=== PATIENT | female | born 1990 | race African-American/Black ===

== ENCOUNTER 2022-12-31 05:42 | Emergency (ER) | payer MEDICAID, OTHER ==
[~2022-12-31] VITALS: Ht 165.1 cm; Wt 79.3 kg
[2022-12-31 06:55] VITALS: BP 134/76
[2022-12-31] MEDS ORDERED: CEPH-510 PO (07:06)
[2022-12-31] MEDS ORDERED: IBUP800T27 PO (07:06)
== END 2022-12-31 07:11 | disposition home or self-care (01) ==
LOC: ER 05:42
DX: T24.211A Burn of second degree of right thigh, initial encounter (principal); T25.321A Burn of third degree of right foot, initial encounter; Z79.1 Long term (current) use of non-steroidal anti-inflammatories (NSAID); Z79.899 Other long term (current) drug therapy; X10.1XXA Contact with hot food, initial encounter; Y93.89 Activity, other specified; Y92.89 Other specified places as the place of occurrence of the external cause; Y99.8 Other external cause status

== ENCOUNTER 2023-04-29 09:31 | Emergency (ER) | payer MEDICAID ==
[~2023-04-29] VITALS: Ht 165.1 cm; Wt 79.4 kg
[~2023-04-29 09:31] MED LIST: CEPH-510 PO; IBUP-1456 PO
[2023-04-29 09:49] VITALS: BP 130/84
[2023-04-29] MEDS ORDERED: ALBUTEROL SULF 2.5 MG/0.5ML(0.5%) NEB SOLN NEB ONE (10:00)
[2023-04-29] MEDS ORDERED: IPRATROPIUM BROM 0.5 MG/2.5ML INH SOL NEB ONE (10:00)
[2023-04-29] MEDS ORDERED: ALBU108A5 IN (11:13)
[2023-04-29] MEDS ORDERED: IBUP-1456 PO (11:13)
[2023-04-29] MEDS ORDERED: PRED20TA2 PO (11:13)
== END 2023-04-29 11:22 | disposition home or self-care (01) ==
LOC: ER 09:31
DX: S93.601A Unspecified sprain of right foot, initial encounter (principal); J45.901 Unspecified asthma with (acute) exacerbation; W22.8XXA Striking against or struck by other objects, initial encounter; Y93.02 Activity, running; Y92.89 Other specified places as the place of occurrence of the external cause; Y99.8 Other external cause status
CPT/HCPCS: 94640; 99283; J7644

== ENCOUNTER 2025-02-25 05:25 | Emergency (ER) | payer MEDICAID ==
[~2025-02-25 05:25] MED LIST changes: +ALBU108A5 IN; +PRED20TA2 PO
[2025-02-25 05:30] VITALS: BP 123/82; PULSE 74; TEMP 97.7
--- NOTE | 2025-02-25 05:41 | ED.PDOC ---
History of Present Illness HPI Comments 35 y/o obese F, with a Hx of asthma, presents with c/o shortness of breath, today. Patient endorses on sudden and unprovoked onset of symptoms, this morning. She reports on running out of her asthma inhaler, lately. She further comments on said inhaler prescription being insufficient for her previous asthma onset for the past 2 months prior to running out of it. She denies chest pain, palpitations, or other associated symptoms or modifiers at this time. Chief Complaint: Asthma Time Seen by MD: 05:30 Primary Care Provider: FAIZAN Reviewed Notes: Nurses Notes, Medications, Allergies Allergies: Coded Allergies: NO KNOWN ALLERGIES (Unverified , 12/31/22) Home Meds Active Scripts Ibuprofen (Ibuprofen) 800 Mg Tab, 1 TAB PO TID, #24 TAB Prov:ROGERS SMITH 04/29/23 Prednisone (Prednisone) 20 Mg Tab, 60 MG PO DAILY, #15 MG Prov:ROGERS SMITH 04/29/23 Albuterol Sulfate (Albuterol Sulfate Hfa) 108 Mcg/Act Aer, 108 MCG IN TID, #90 AER Prov:ROGERS SMITH 04/29/23 Ibuprofen (Ibuprofen) 800 Mg Tab, 1 TAB PO TID, #24 TAB Prov:ROGERS SMITH 12/31/22 Cephalexin ( Keflex 500) 500 Mg Cap, 1 CAP PO QID, #28 CAP Prov:ROGERS SMITH 12/31/22 Past Medical History PAST MEDICAL HISTORY: Asthma Past Medical History (Other): obesity Surgical History: Denies all surgeries EVP OPERATIONS History: No Pertinent EVP OPERATIONS History Family History Family History: Reviewed,noncontributory to illness Social History Smoker: Non-Smoker Alcohol: Denies ETOH Use Drugs: Denies Drug Use Lives In: Home Constitutional: denies: chills, diaphoresis, fatigue, fever, malaise, sweats, weakness, others EENTM: denies: blurred vision, double vision, ear bleeding, ear discharge, ear drainage, ear pain, ear ringing, eye pain, eye redness, hearing loss, mouth pain, mouth swelling, nasal discharge, nose bleeding, nose congestion, nose pain, photophobia, tearing, throat pain, throat swelling, voice changes, others Respiratory: reports: shortness of breath, wheezing; denies: cough, hemoptysis, orthopnea, SOB with excertion, stridor, others Cardiovascular: denies: chest pain, dizzy spells, diaphoresis, Dyspnea on exertion, edema, irregular heart beat, left arm pain, lightheadedness, pal pitations, PND, syncope, others Gastrointestinal: denies: abdomen distended, abdominal pain, blood streaked bowels, constipated, diarrhea, dysphagia, difficulty swallowing, hematemesis, melena, nausea, poor appetite, poor fluid intake, rectal bleeding, rectal pain, vomiting, others Genitourinary: denies: abnormal vagina bleeding, burning, dyspareunia, dysuria, flank pain, frequency, hematuria, incontinence, pain, , vagina discharge, urgency, others Neurological: denies: dizziness, fainting, headache, left sided numbness, left sided weakness, numbness, paresthesia, pre-existing deficit, right sided numbness, right sided weakness, seizure, speech problems, tingling, tremors, weakness, others Musculoskeletal: denies: back pain, gout, joint pain, joint swelling, muscle pain, muscle stiffness, neck pain, others Integumetry: denies: bruises, change in color, change in hair/nails, dryness, laceration, lesions, lumps, rash, wounds, others Allergic/Immunocompromised: denies: Difficulty Healing, Frequent Infections, Hives, Itching, others Hematologic/Lymphatic: denies: anemia, blood clots, easy bleeding, easy b ruising, swollen glands, others Endocrine: denies: excessive hunger, excessive sweating, excessive thirst, excessive urination, flushing, intolerance to cold, intolerance to heat, unexplained weight gain, unexplained weight loss, others Psychiatric: denies: anxiety, bipolar disorder, depression, hopeless, panic disorder, schizophrenia, sleepless, suicidal, others All Other Systems: Reviewed and Negative (Comprehensive systems review obtained and negative except for what is stated in the HPI.) Physical Exam General Appearance: No Apparent Distress, Obese HEENT: Normal ENT Inspection, Pharynx Normal, TMs Normal Neck: Full Range of Motion, Non-Tender, Normal, Normal Inspection Respiratory: Chest Non-Tender, Lungs Clear, No Accessory Muscle Use, No Respiratory Distress, Wheezing Cardiovascular: No Edema, No JVD, No Murmur, No Gallop, Normal Peripheral Pulses, Regular Rate/Rhythm Breast Exam: Deferred Gastrointestinal: No Organomegaly, Non Tender, No Pulsatile Mass, Normal Bowel Sounds, Soft Genitalia: Deferred Pelvic: Deferred Rectal: Deferred Extremities: No calf tenderness, Normal capillary refill, Normal inspection, Normal range of motion, Non-tender, No pedal edema Musculoskeletal : Apperance: Normal Neurologic: Alert, block mason II-XII nml as Tested, No Motor Deficits, Normal Affect, Normal Mood, No Sensory Deficits Cerebellar Function: Normal Reflexes: Normal Skin: Dry, Normal Color, Warm Lymphatic: No Adenopathy Was a procedure done? Was a procedure done?: No Differential Dx Considerations may include: asthma exacerbations, URI, viral syndrome, PNA X-Ray, Labs, Meds, VS Vital Signs Date Time Temp Pulse Resp B/P (MAP) Pulse Ox O2 Delivery O2 Flow Rate FiO2 02/25/25 05:30 97.7 74 18 123/82 (96) 99 97.7 02/25/25 05:30 99 Room Air* 0 21 Current Medications Medications (Trade) Dose Ordered Sig/Alejandro Route Start Time Stop Time Status Last Admin Dexamethasone Sodium Phosphate (Decadron Injection) 10 mg ONCE ONCE PO 02/25/25 05:45 02/25/25 05:46 DC 02/25/25 05:47 Time of 1ST Reevaluation: 06:00 Reevaluation 1ST: Improved Patient Education/Counseling: Diagnosis, Treatment, Prognosis, Need For Follow Up Family Education/Counseling: No Family Present Additional Information Previous medical encounters reviewed: Encounter here for asthma exacerbation on April 29, 2023 The following tests were ordered, and results were reviewed by me: n/a Additional Information was gathered from interviewing the following independent historians: n/a I reviewed and agreed with the following test results read by other providers: n/a I discussed treatment and results with medical personnel and: Patient Departure 1 Departure Time of Disposition: 06:20 Impression: Primary Impression: Acute asthma exacerbation Qualified Codes: J45.21 - Mild intermittent asthma with (acute) exacerbation Additional Impression: Medication refill Disposition: HOME / SELF CARE / HOMELESS Condition: Fair Discharged With: Self Critical Care Note Critical Care Time?: No Stability Stability form required: No Heart Score Heart Score: Heart Score Response (Comments) Value History N/A 0 EKG N/A 0 Age N/A 0 Risk Factors N/A 0 Troponin N/A 0 Total 0 I personally scribed for SHELBI BLAIR MD ([email or web address]) on 02/25/25 at 05:41. Electronically submitted by Shahriar Rios ([email or web address]). SHELBI BLAIR MD Feb 25, 2025 05:41
[2025-02-25] MEDS: DexAMETHasone SOD PHOS 10MG/1ML VIAL INJ PO ONE (05:47)
[2025-02-25] MEDS ORDERED: IPRAAER6 IN (05:53)
[2025-02-25] MEDS ORDERED: PRED20TA2 PO (05:53)
[2025-02-25 06:02] VITALS: RESP 16; O2SAT 98
[2025-02-25] MEDS: IPRATROPIUM BROM 0.5 MG/2.5ML INH SOL NEB ONE (06:02)
[2025-02-25] MEDS: ALBUTEROL SULF 2.5 MG/0.5ML(0.5%) NEB SOLN NEB ONE (06:02)
== END 2025-02-25 07:01 | disposition home or self-care (01) ==
LOC: ER 05:25
DX: J45.901 Unspecified asthma with (acute) exacerbation (principal); E66.9 Obesity, unspecified; Z76.0 Encounter for issue of repeat prescription
CPT/HCPCS: 94640; 99283; J1100